=== PATIENT | male | born 1995 | race Caucasian/White ===

== ENCOUNTER 2018-05-11 06:24 | Emergency (ER) | payer MEDICAID ==
--- NOTE | 2018-05-11 06:59 | ERPHSYRPT ---
- History of Present Illness Source: patient, family Exam Limitations: no limitations Patient Subjective Stated Complaint: mom states pt has had swelling in rt jaw since saturday and has a broken tooth on that side Triage Nursing Assessment: pt awake and alert, age approp behavior. pt ambulatory with steady gait noted. respirations nonlabored with lungs cta. pt states he has difficulty swallowing d/t swelling in rt lower jaw. swelling to rt lower jaw extending into rt neck. no tenderness noted to light palpation. broken tooth noted to rt lower jaw. Timing/Duration: gradual onset, days Severity: severe ENT Location: mouth, dental Prearrival Treatment: prescription meds Modifying Factors: Improves With: nothing Associated Symptoms: facial pain/swelling, jaw pain, poor solids intake, sore throat, tooth pain Hx Tetanus, Diphtheria Vaccination/Date Given: Yes Hx Influenza Vaccination/Date Given: No Hx Pneumococcal Vaccination/Date Given: No Immunizations Up to Date: Yes <FELIZ STOLL - Last Filed: 05/11/18 07:07> <MATTHIEU WANG - Last Filed: 05/11/18 12:46> - History of Present Illness Time Seen by Provider: 05/11/18 06:54 Physician History: pt is 23 year old male with right lower dental pain and swelling x 5 days treated already with amoxicillin and with gradually increasing swelling over that time now with throat pain , but still able to swallow and no trouble breathing; there is swelling now in the lower jaw anterior but not yet all the way to trachea; the pt cannot open jaw all the way; tender right lower molar reproduces pain exactly; (FELIZ STOLL) Allergies/Adverse Reactions: No Known Drug Allergies Allergy (Verified 05/11/18 06:44) Home Medications: No Reportable Medications [No Reported Medications] 05/11/18 [History] - Review of Systems Constitutional: No Fever, No Chills Eyes: No Symptoms Ears, Nose, & Throat: Throat Pain, Painful Swallowing, Other (dental pain) Respiratory: No Cough, No Dyspnea Cardiac: No Chest Pain, No Edema, No Syncope Abdominal/Gastrointestinal: No Abdominal Pain, No Nausea, No Vomiting, No Diarrhea Genitourinary Symptoms: No Dysuria Musculoskeletal: No Back Pain, No Neck Pain Skin: No Rash Neurological: No Dizziness, No Focal Weakness, No Sensory Changes Psychological: No Symptoms Endocrine: No Symptoms All Other Systems: Reviewed and Negative <FLEIZ STOLL - Last Filed: 05/11/18 07:07> - Past Medical History Pertinent Past Medical History: No - Past Surgical History Past Surgical History: Yes Other Surgical History: tubes in ears as a child - Social History Smoking Status: Current every day smoker How long have you smoked: 6 yrs Exposure to second hand smoke: Yes Drug Use: none Patient Lives Alone: No <FELIZ STOLL - Last Filed: 05/11/18 07:07> - Physical Exam General Appearance: no apparent distress, alert Eye Exam: bilateral eye: PERRL, EOMI Ear Exam: bilateral ear: auricle normal, canal normal, TM normal Nasal Exam: normal inspection Throat Exam: pharynx normal, dental tenderness, mandibular swelling, moist mucus membranes, No excessive drooling, No tonsillar exudate Neck Exam: trachea midline, lymphadenopathy (R), No meningismus Cardiovascular/Respiratory Exam: normal breath sounds, regular rate/rhythm Abdominal Exam: non-tender, soft Neurologic Exam: alert, oriented x 3, sensation nml, No motor deficits Skin Exam: normal color, warm, dry SpO2: 98 <EFLIZ STOLL - Last Filed: 05/11/18 07:07> - Nursing Vital Signs Nursing Vital Signs: Initial Vital Signs Temperature 99.4 F 05/11/18 06:33 Pulse Rate 93 H 05/11/18 06:33 Respiratory Rate 18 05/11/18 06:33 Blood Pressure 135/89 05/11/18 06:33 O2 Sat by Pulse Oximetry 98 05/11/18 06:33 Pain Scale Pain Intensity 4 - Course Nursing assessment & vital signs reviewed: Yes <FELIZ STOLL - Last Filed: 05/11/18 07:07> Ordered Tests: Active Orders 24 hr Category Date Time Status IV Insertion STAT Care 05/11/18 07:03 Active Pulse Oximetry (ED) STAT Care 05/11/18 07:03 Active FACIAL BONES WO CONTRAST [CT] Stat Exams 05/11/18 07:02 Completed NECK WO CONTRAST [CT] Stat Exams 05/11/18 07:02 Completed CBC W DIFF Stat Lab 05/11/18 07:00 Completed CMP Stat Lab 05/11/18 07:00 Completed Medication Summary Discontinued Medications Generic Name Dose Route Start Last Admin Trade Name Freq PRN Reason Stop Dose Admin Dexamethasone Sodium Phosphate 10 mg 05/11/18 07:05 05/11/18 07:40 Decadron 10mg Inj. IV 05/11/18 07:06 10 mg STAT ONE Administration Dexamethasone Sodium Phosphate Confirm 05/11/18 07:19 Decadron 10mg Inj. Administered 05/11/18 07:20 Dose 10 mg .ROUTE .STK-MED ONE Sodium Chloride 1,000 mls @ 999 mls/hr 05/11/18 07:03 05/11/18 10:01 Sodium Chloride 0.9% 1000 Ml IV 05/11/18 08:03 Infused .Q1H1M STA Infusion Ceftriaxone Sodium/Dextrose 1 g in 50 mls @ 100 mls/hr 05/11/18 07:04 10:02 Rocephin 1 Gm-D5w 50 Ml Bag IV 05/11/18 07:33 Infused STAT STA Infusion Clindamycin HCl/Dextrose 600 mg in 50 mls @ 100 mls/hr 05/11/18 07:06 10:02 Clindamycin-D5w 600 Mg/50 Ml IV 05/11/18 07:35 Infused STAT STA Infusion Ampicillin Sodium/Sulbactam Sodium 1.5 gm in 100 mls @ 200 mls/hr 05/11/18 07: 06 05/11/18 10:02 Unasyn 1.5gm / Nacl 100ml IV 05/11/18 07:35 Infused STAT STA Infusion Sodium Chloride Confirm 05/11/18 07:19 Sodium Chloride 0.9% 1000 Ml Administered 05/11/18 07:20 Dose 1,000 mls @ ud .ROUTE .STK-MED ONE Ceftriaxone Sodium/Dextrose Confirm 05/11/18 07:19 Rocephin 1 Gm-D5w 50 Ml Bag Administered 05/11/18 07:20 Dose 1 g in 50 mls @ ud IV .STK-MED ONE Ampicillin Sodium/Sulbactam Sodium Confirm 05/11/18 07:19 Unasyn 1.5gm / Nacl 100ml Administered 05/11/18 07:20 Dose 1.5 gm in 100 mls @ ud .ROUTE .STK-MED ONE Clindamycin HCl/Dextrose Confirm 05/11/18 07:20 Clindamycin-D5w 600 Mg/50 Ml Administered 05/11/18 07:21 Dose 600 mg in 50 mls @ ud IV .STK-MED ONE Ketorolac Tromethamine 30 mg 05/11/18 07:56 05/11/18 08:35 Toradol 30 Mg Injection IV 05/11/18 07:57 30 mg STAT ONE Administration Ketorolac Tromethamine Confirm 05/11/18 08:32 Toradol 30 Mg Injection Administered 05/11/18 08:33 Dose 30 mg .ROUTE .STK-MED ONE Lab/Rad Data: Laboratory Result Diagrams 05/11/18 07:00 05/11/18 07:00 Laboratory Results 05/11/18 05/11/18 Range/Units 07:00 07:00 WBC 12.9 H (4.0-10.5) K/mm3 RBC 4.86 (4.1-5.6) M/mm3 Hgb 15.0 (12.5-18.0) gm/dl Hct 45.8 (42-50) % MCV 94.2 (78-100) fl MCH 30.9 (26-32) pg MCHC 32.8 (32-36) g/dl RDW 13.7 (11.5-14.0) % Plt Count 214 (150-450) K/mm3 MPV 10.8 H (6-9.5) fl Gran % 78.2 H (36.0-66.0) % Eos # (Auto) 0.05 (0-0.5) Absolute Lymphs (auto) 1.28 (1.0-4.6) Absolute Monos (auto) 1.44 H (0.0-1.3) Lymphocytes % 10.0 L (24.0-44.0) % Monocytes % 11.2 (0.0-12.0) % Eosinophils % 0.4 (0.00-5.0) % Basophils % 0.2 (0.0-0.4) % Absolute Granulocytes 10.07 H (1.4-6.9) Basophils # 0.02 (0-0.4) Sodium 139 (137-145) mmol/L Potassium 4.0 (3.5-5.1) mmol/L Chloride 104 (98-107) mmol/L Carbon Dioxide 26 (22-30) mmol/L Anion Gap 13.6 (5-15) MEQ/L BUN 23 H (9-20) mg/dL Creatinine 0.76 (0.66-1.25) mg/dL Estimated GFR > 60.0 ML/MIN Glucose 110 H (74-106) mg/dL Calcium 9.3 (8.4-10.2) mg/dL Total Bilirubin 0.80 (0.2-1.3) mg/dL AST 29 (17-59) U/L ALT 35 (0-50) U/L Alkaline Phosphatase 124 (38-126) U/L Serum Total Protein 7.1 (6.3-8.2) g/dL Albumin 4.1 (3.5-5.0) g/dL - Progress Progress: re-examined Counseled pt/family regarding: lab results, diagnosis, need for follow-up, rad results <FELIZ STOLL - Last Filed: 05/11/18 07:07> <MATTHIEU WANG - Last Filed: 05/11/18 12:46> - Progress Progress Note: 05/11/18 07:07 pt handed over [address] Wang at change of shift for final disposition / Tx after discussion of pending testing , potential diagnosis , and emergent OMFS referral/eval. (FELIZ STOLL) 05/11/18 08:58 23-year-old white male arrives with complaint of pain in the right mandibular area swelling in the right side of his jaw and neck symptoms for 5 days apparently had been taking Augmentin. Patient is initially seen by Dr. Stoll. Patient noted to have marked edema to the right side of his jaw and on the right side of his neck he is unable to fully open his mouth. Is not having problems breathing. CT of the face and a CT of the soft tissue neck remarkable for significant/ severe soft tissue edema in the right side of the floor the mouth extending around the right side of the mandible into the parapharyngeal space. Aches this exerts mass effect on the right side of the upper airway at the level of the laryngeal pharynx and oral pharynx. This originates from dental abscesses associated with right mandibular molars the left side of floor the mouth appears relatively spared suggesting against fluid legs angina there does not appear to be a drainable abscess adjacent to the mandibular teeth. 2. There is a moderate size retropharyngeal effusion likely reactive to extensive infection there is also soft tissue edema extending along the right and anterior aspect of the neck to the level of the manubrium consistent with cellulitis Patient was initially seen by Dr. Stoll he prescribed clindamycin, ampicillin, Decadron, patient is also received Toradol 30 mg IV patient's CBC is remarkable for white count 12.9 hemoglobin 15 hematocrit 45.8 platelets are 214 patient's chemistries sodium 139 potassium 4.0 chloride 105 bicarbonate 26 BUN 23 creatinine 0.76 glucose is 110 Patient's vitals were stable Pulse ox is 98% I contacted [facility] they were unable to take care of this patient. I did contact [facility] call and Dr. Nereida Martinez Has a requested that the patient be sent to [facility]. Will plan to transfer patient by [facility] ambulance. (MATTHIEU WANG) <FELIZ STOLL - Last Filed: 05/11/18 07:07> - Departure Time of Disposition: 08:58 Departure Disposition: Transfer ([facility]) Critical Care Time: No <MATTHIEU WANG - Last Filed: 05/11/18 12:46> - Departure Clinical Impression: Dental abscess, Facial cellulitis, retropharyngeal effusion Condition: Fair Referrals: DOCTOR,NO FAMILY [Primary Care Provider] -
[2018-05-11] MEDS ORDERED: Sodium Chloride 0.9% 1000 ML 1,000 ML IV STA (07:03)
[2018-05-11] MEDS ORDERED: ROCEPHIN 1 Gm-D5w 50 ml Bag** 1 G/50 ML IVPB IV STA (07:04)
[2018-05-11] MEDS ORDERED: DECADRON 10MG INJ. IV ONE (07:05)
[2018-05-11] MEDS ORDERED: Unasyn 1.5GM / NaCl 100ML 1.5 GM/100 ML IVPB IV STA (07:06)
[2018-05-11] MEDS ORDERED: CLINDAMYCIN-D5W 600 MG/50 ML*** 600 MG/50 ML BAG IV STA (07:06)
[2018-05-11] MEDS ORDERED: Unasyn 1.5GM / NaCl 100ML 1.5 GM/100 ML IVPB ONE (07:19)
[2018-05-11] MEDS ORDERED: ROCEPHIN 1 Gm-D5w 50 ml Bag** 1 G/50 ML IVPB IV ONE (07:19)
[2018-05-11] MEDS ORDERED: DECADRON 10MG INJ. ONE (07:19)
[2018-05-11] MEDS ORDERED: Sodium Chloride 0.9% 1000 ML 1,000 ML ONE (07:19)
[2018-05-11] MEDS ORDERED: CLINDAMYCIN-D5W 600 MG/50 ML*** 600 MG/50 ML BAG IV ONE (07:20)
[2018-05-11 07:25] LABS: BASOPHIL % 0.2 % (0.0-0.4); Basophil (Absolute #) 0.02 (0-0.4); Eosinophil % 0.4 % (0.00-5.0); Eosinophil (Absolute #) 0.05 (0-0.5); Granulocytes % 78.2 % (36.0-66.0); Hematocrit 45.8 % (42-50); Lymphocyte (Absolute #) 1.28 (1.0-4.6); Mean Cell Volume 94.2 fl (78-100); Mean Corpuscular Hemoglobin 30.9 pg (26-32); Mean Corpuscular Hgb Concent. 32.8 g/dl (32-36); Mean Platelet Volume 10.8 fl (6-9.5); Monocyte (Absolute #) 1.44 (0.0-1.3); Monocytes % 11.2 % (0.0-12.0); Platelet Count 214 K/mm3 (150-450); Red Blood Count 4.86 M/mm3 (4.1-5.6); Red Cell Distribution Width 13.7 % (11.5-14.0); White Blood Count 12.9 K/mm3 (4.0-10.5)
[2018-05-11 07:39] LABS: ALBUMIN 4.1 g/dL (3.5-5.0); ALKALINE PHOSPHATASE 124 U/L (38-126); ANION GAP 13.6 MEQ/L (5-15); BLOOD UREA NITROGEN 23 mg/dL (9-20); CHLORIDE 104 mmol/L (98-107); Calcium 9.3 mg/dL (8.4-10.2); Carbon Dioxide 26 mmol/L (22-30); Creatinine 1 0.76 mg/dL (0.66-1.25); Glucose 110 mg/dL (74-106); SGOT/AST 29 U/L (17-59); SGPT/ALT 35 U/L (0-50); SODIUM 139 mmol/L (137-145); Total Protein 7.1 g/dL (6.3-8.2)
[2018-05-11] MEDS ORDERED: TORAdol 30 mg Injection IV ONE (07:56)
[2018-05-11] MEDS ORDERED: TORAdol 30 mg Injection ONE (08:32)
--- NOTE | 2018-05-11 09:44 | XRAY ---
Indication: Mouth pain and swelling. Possible dental abscess. Multiple contiguous axial images obtained through the neck without contrast as ordered. Sagittal and coronal reformatted images obtained. Cutaneous marker placed over the region of interest. Comparison: None Cutaneous marker seen overlying right jaw where there is underlying soft tissue swelling/edema favoring underlying inflammatory/infectious process. Larger focus of deep right masseter space, floor of the right mouth, and right paraesophageal soft tissue swelling/edema narrows the laryngopharynx and oropharynx. Lack of IV contrast precludes further characterization and therefore abscesses not completely excluded. Normal epiglottis. Underlying prominent reactive right submandibular and right cervical lymphadenopathy, largest 1.1 x 2.2 cm adjacent to the carotid bulb. Also enlarged right submandibular gland. No focal fluid collection or air bubbles to suggest abscess. No focal thyroid solid/cystic mass. Elsewhere no acute fracture, suspicious bony lesions, or osseous destructive process. Incidental multiple bilateral dental caries, largest focus right lower molar tooth. Floor of the maxillary sinuses demonstrates minimal mucosal thickening without fluid leveling. Visualized cervical spine intact with cervical lordotic reversal. Visualized brain and lung apices unremarkable. Impression: 1. Right mandible, right deep masseter space, floor of the right mouth, and right paraesophageal soft tissue swelling/edema favoring underlying inflammatory/infectious process with reactive submandibular and cervical lymphadenopathy. Abscesses not completely excluded on this noncontrast exam. 2. Multiple bilateral dental caries. 3. Minimal paranasal sinus disease. Comment: Preliminary interpretation was made by [facility]. No critical discrepancy. CTDI 14.67
--- NOTE | 2018-05-11 09:45 | XRAY ---
Indication: Mouth pain and swelling. Possible dental abscess. Multiple contiguous axial images obtained through the facial bones without contrast as ordered. Sagittal and coronal reformatted images obtained. Cutaneous marker placed over the region of interest. Comparison: None Cutaneous marker seen overlying right jaw where there is underlying soft tissue swelling/edema favoring underlying inflammatory/infectious process. Larger focus of deep right masseter space, floor of the right mouth, and right paraesophageal soft tissue swelling/edema narrows the laryngopharynx and oropharynx. Lack of IV contrast precludes further characterization and therefore abscesses not completely excluded. Underlying prominent reactive right submandibular and right cervical lymphadenopathy, largest 1.1 x 2.2 cm adjacent to the carotid bulb. Also enlarged right submandibular gland. No focal fluid collection or air bubbles to suggest abscess. Elsewhere no acute fracture, suspicious bony lesions, or osseous destructive process. Incidental multiple bilateral dental caries, largest focus right lower molar tooth. Orbits including roof, oliver, and floors are intact. Floor of the maxillary sinuses demonstrates minimal mucosal thickening without fluid leveling. Moderate nasal septal deviation to the left. Remaining visualized noncontrasted soft tissues including base of the brain unremarkable. Visualized cervical spine intact. Impression: 1. Right mandible, right deep masseter space, floor of the right mouth, and right paraesophageal soft tissue swelling/edema favoring underlying inflammatory/infectious process with reactive submandibular and cervical lymphadenopathy. Abscesses not completely excluded on this noncontrast exam. 2. Multiple bilateral dental caries. 3. Minimal paranasal sinus disease. Comment: Preliminary interpretation was made by [facility]. No critical discrepancy. CTDI 59.47
[2018-05-11 10:07] VITALS: BP 99/69; PULSE 98; O2SAT 98
== END 2018-05-11 10:18 | disposition short-term general hospital (02) ==
LOC: ED 06:24
DX: K04.7 Periapical abscess without sinus (principal); L03.211 Cellulitis of face; J39.0 Retropharyngeal and parapharyngeal abscess; Z72.0 Tobacco use
CPT/HCPCS: 36000; 36415; 70486; 70490; 80053; 85025; 96360; 96365; 96367; 96374; 96375; 99285; J0295; J0696; J1100; J1885